=== PATIENT | female | born 1955 | race Caucasian/White ===

== ENCOUNTER → 2017-09-21 | Outpatient (CLI) | payer MEDICARE ==
--- NOTE | 2017-09-21 16:31 | WOMENS IMAGING REPORT ---
EXAM DESCRIPTION: BILAT SCREENING MAMMO W/CAD COMPLETED DATE/TIME: 09/21/2017 2:24 pm REASON FOR STUDY: ROUTINE SCREENING;Z12.31 Z12.31 ENCNTR SCREEN MAMMOGRAM FOR MALIGNANT NEOPLASM OF SERVANDO COMPARISON: Multiple since 2012 TECHNIQUE: Standard craniocaudal and mediolateral oblique views of each breast recorded using [employer] acquisition. LIMITATIONS: None. FINDINGS: No masses, calcifications or architectural distortion. No areas of suspicion. Read with the assistance of CAD. .[facility] - R2 Cenova Version 1.3 .[facility] - R2 Cenova Version 1.3 .[facility] - R2 Cenova Version 2.4 .[facility] - R2 Cenova Version 2.4 .[facility] - R2 [employer] Version 9.2 IMPRESSION: NORMAL MAMMOGRAM. BIRADS 1. BREAST DENSITY: b. There are scattered areas of fibroglandular density. BIRAD: 1 NEGATIVE RECOMMENDATION: ROUTINE SCREENING Please continue yearly bilateral screening mammography/tomosynthesis in August 2018 COMMENT: The patient has been notified of the results by letter per SA requirements. Additional no tification policies are in place for contacting patient with suspicious or incomplete findings. Quality ID #[id number]: The [employer] recommends an annual screening mammogram for women aged 40 years or over. This facility utilizes a reminder system to ensure that all patients receive reminder letters, and/or direct phone calls for appointments. This includes reminders for routine scr eening mammograms, diagnostic mammograms, or other Breast Imaging Interventions when appropriate. Th is patient will be placed in the appropriate reminder system. The [employer] (ACR) has developed recommendations for screening MRI of the breast s in certain patient populations, to be used in conjunction with mammography. Breast MRI surveillanc e may be appropriate for women with more than 20% lifetime risk of developing breast cancer as deter mined by genetic testing, significant family history of the disease, or history of mantle radiation f or Hodgkins Disease. ACR Practice Guidelines 2008. TECHNICAL DOCUMENTATION: FINDING NUMBER: (1) ASSESSMENT: (1) JOB ID: [id number] [employer]- All Rights Reserved Reading location - IP/workstation name: [email or web address]
== END ==
LOC: WI 13:53
PROVIDERS: ATTEND Physician Assistant
DX: Z12.31 Encounter for screening mammogram for malignant neoplasm of breast (principal)
CPT/HCPCS: 77067

== ENCOUNTER 2018-06-05 20:41 | Emergency (ER) | payer MEDICARE ==
[2018-06-05] MEDS ORDERED: ONDANSETRON HCL INJ/PF 4 MG/2 ML SDV IV ONE (21:01)
[2018-06-05 21:30] LABS: ABSOLUTE LYMPHOCYTES (AUTO) 0.9 10^3/uL (0.5-4.7); ABSOLUTE MONOCYTES (AUTO) 0.1 10^3/uL (0.1-1.4); ABSOLUTE NEUT (AUTO) 7.4 10^3/uL (1.7-8.2); BASOPHILS % (AUTO) 0.4 % (0-2); HEMATOCRIT 44.8 % (36.0-47.0); HEMOGLOBIN 15.7 g/dL (12.0-15.5); LYMPHOCYTES % (AUTO) 11.1 % (13-45); MEAN CORPUSCULAR HEMOGLOBIN 29.7 pg (27.0-33.4); MEAN CORPUSCULAR HGB CONC 35.1 g/dL (32.0-36.0); MEAN CORPUSCULAR VOLUME 85 fl (80-97); MONOCYTES % (AUTO) 1.1 % (3-13); PLATELET COUNT 247 10^3/uL (150-450); RED BLOOD COUNT 5.28 10^6/uL (3.72-5.28); RED CELL DISTRIBUTION WIDTH 13.6 % (11.5-14.0); SEGMENTED NEUTROPHILS % (AUTO) 87.4 % (42-78); TOTAL CELLS COUNTED % (AUTO) 100 %; WHITE BLOOD COUNT 8.5 10^3/uL (4.0-10.5)
[2018-06-05] MEDS ORDERED: HYDROMORPHONE HCL INJ/PF 2 MG/ML AMPULE IV ONE (21:36)
[2018-06-05] MEDS ORDERED: METOCLOPRAMIDE HCL INJ/PF 10 MG/2 ML SDV IV ONE (21:36)
[2018-06-05 21:48] LABS: ALANINE AMINOTRANSFERASE 24 U/L (9-52); ALBUMIN 4.7 g/dL (3.5-5.0); ALKALINE PHOSPHATASE 96 U/L (38-126); ANION GAP 17 (5-19); ASPARTATE AMINO TRANSFERASE 28 U/L (14-36); BILIRUBIN,DIRECT 0.3 mg/dL (0.0-0.4); BILIRUBIN,TOTAL 0.7 mg/dL (0.2-1.3); BLOOD UREA NITROGEN 21 mg/dL (7-20); CARBON DIOXIDE 20 mmol/L (22-30); CHLORIDE 104 mmol/L (98-107); CREATINE KINASE 42 U/L (30-135); GLUCOSE 191 mg/dL (75-110); POTASSIUM 4.2 mmol/L (3.6-5.0); SODIUM 140.8 mmol/L (137-145); TOTAL PROTEIN 7.3 g/dL (6.3-8.2)
[2018-06-05 22:00] LABS: CREATINE KINASE MB 0.24 ng/mL (<4.55)
[2018-06-05 22:01] LABS: TROPONIN I < 0.012 ng/mL
[2018-06-05 22:05] LABS: APPEARANCE,URINE CLOUDY; BILIRUBIN,URINE NEGATIVE (NEGATIVE); COLOR,URINE YELLOW; GLUCOSE, URINE 50 mg/dL (NEGATIVE); KETONES,URINE 20 mg/dL (NEGATIVE); LEUKOCYTE ESTERASE,URINE SMALL (NEGATIVE); NITRITE,URINE NEGATIVE (NEGATIVE); PROTEIN,URINE 100 mg/dL (NEGATIVE); URINE SPECIFIC GRAVITY 1.015; UROBILINOGEN,URINE NEGATIVE mg/dL (<2.0)
[2018-06-05] MEDS ORDERED: RINGERS SOLUTION,LACTATED 1,000 ML IV ONE (22:16)
[2018-06-05] MEDS ORDERED: NORMAL SALINE 1000 ML 1,000 ML IV ONE (22:17)
--- NOTE | 2018-06-05 23:58 | ER Document Report ---
ED General - General TRAVEL OUTSIDE OF THE [place] IN LAST 30 DAYS: No <SHYANN KATZ - Last Filed: 06/06/18 07:05> <DIANAJOSI - Last Filed: 06/06/18 14:34> - General Chief Complaint: Nausea/Vomiting Stated Complaint: VOMMITING Time Seen by Provider: 06/05/18 21:27 Primary Care Provider: PINA HERNANDEZ FNP-C [Primary Care Provider] - Follow up as needed Notes: Patient is 62-year-old female presents to the emergency department for genera lized nausea, vomiting, left lower abdominal pain. Patient states she just left [facility] after kidney stent placement for kidney stones. States Dr. Lito Alicia was the provider that did the procedure. States they were on the way home from [facility] when the patient had excruciating pain in her left flank and then started violently vomiting. Patient states at that time she feels as though the stent "came out of my vagina." Patient states she has continued with vomiting and dry heaving and excruciating pain in her left flank which is why she presents to the emergency room. states they attempted to call the doctor at [facility] but were unable to reach them. (SHYANN KATZ) - Related Data Allergies/Adverse Reactions: latex [Latex] Allergy (Verified 07/04/13 17:36) codeine [Codeine] Adverse Reaction (Verified 07/04/13 17:36) itching Past Medical History - General Information source: Patient, Relative - Social History Smoking Status: Unknown if Ever Smoked Family History: Reviewed & Not Pertinent Patient has suicidal ideation: No Patient has homicidal ideation: No - Past Medical History Cardiac Medical History: Reports: Hx Hypercholesterolemia, Hx Hypertension Renal/ Medical History: Denies: Hx Peritoneal Dialysis Past Surgical History: Reports: Hx Hysterectomy, Hx Orthopedic Surgery - Immunizations Hx Diphtheria, Pertussis, Tetanus Vaccination: No <SHYANN KATZ - Last Filed: 06/06/18 07:05> Review of Systems - Review of Systems Constitutional: denies: Fever EENT: No symptoms reported Cardiovascular: No symptoms reported Respiratory: No symptoms reported Gastrointestinal: See HPI Genitourinary: See HPI Female Genitourinary: See HPI Musculoskeletal: See HPI Skin: No symptoms reported Hematologic/Lymphatic: No symptoms reported Neurological/Psychological: No symptoms reported <SHYANN KATZ - Last Filed: 06/06/18 07:05> Physical Exam <SHYANN KATZ - Last Filed: 06/06/18 07:05> - Vital signs Vitals: Pulse Resp BP Pulse Ox 103 H 18 163/71 H 96 06/05/18 20:51 06/05/18 20:51 06/05/18 20:51 06/05/18 20:51 - Notes Notes: GENERAL: Alert, diaphoretic, actively vomiting. HEAD: Normocephalic, atraumatic. EYES: Pupils equal, round, and reactive to light. Extraocular movements intact. ENT: Oral mucosa moist, tongue midline. NECK: Full range of motion. Supple. Trachea midline. LUNGS: Clear to auscultation bilaterally, no wheezes, rales, or rhonchi. No respiratory distress. HEART: Regular rate and rhythm. No murmur ABDOMEN: Soft, Non-distended. Bowel sounds present in all 4 quadrants. Generalized left flank pain. No McBurney's point tenderness, no Siegel sign. EXTREMITIES: Moves all 4 extremities spontaneously. No edema, normal radial and dorsalis pedis pulses bilaterally. No cyanosis. BACK: no cervical, thoracic, lumbar midline tenderness. No saddle anesthesia, normal distal neurovascular exam. NEUROLOGICAL: Alert and oriented x3. Normal speech. cranial nerves II through XII grossly intact PSYCH: Normal affect, normal mood. SKIN: Warm, dry, normal turgor. No rashes or lesions noted. (CHENGDENA BRUNNERSALLY) Course - Laboratory Result Diagrams: 06/05/18 21:20 06/05/18 21:20 <SHYANN KATZ - Last Filed: 06/06/18 07:05> - Laboratory Result Diagrams: 06/05/18 21:20 06/05/18 21:20 <RADHA ORTIZ - Last Filed: 06/06/18 14:34> - Re-evaluation Re-evalutation: Patient's labs show no signs of leukocytosis, her urine is not infected although patient is Loi been on antibiotics per Lito Alicia. Discussed patient's case with urology Dr. Lito Alicia at [id number]. He states to give the patient 2 L of fluid rehydration, treat her pain, nausea, vomiting and to discharge her home. States she can follow-up with him tomorrow. After pain medication in the emergency department patient states she overall feels a whole lot better. She has no further episodes of vomiting after Reglan administration. Discussed close follow-up with her urologist and return precautions. Patient voices understanding stable for discharge. (SHYANN KATZ) - Vital Signs Vital signs: Temp Pulse Resp BP Pulse Ox 97.7 F 103 H 13 122/67 93 06/06/18 01:01 06/05/18 20:51 06/06/18 01:01 06/06/18 01:01 06/06/18 01:01 - Laboratory Laboratory results interpreted by me: 06/05/18 06/05/18 06/05/18 21:20 21:20 21:50 Hgb 15.7 H Seg Neutrophils % 87.4 H Lymphocytes % 11.1 L Monocytes % 1.1 L Carbon Dioxide 20 L BUN 21 H Est GFR (Non-Af Amer) 55 L Glucose 191 H Urine Protein 100 H Urine Glucose (UA) 50 H Urine Ketones 20 H Urine Blood LARGE H Ur Leukocyte Esterase SMALL H Discharge <SHYANN KATZ - Last Filed: 06/06/18 07:05> <RADHA ORTIZ - Last Filed: 06/06/18 14:34> - Discharge Clinical Impression: Nausea & vomiting, Flank pain Condition: Stable Disposition: HOME, SELF-CARE Instructions: Abdominal Pain ([facility]), Antinausea Medication ([facility]), Intravenous (IV) Fluids ([facility]), Vomiting ([facility]) Additional Instructions: As we discussed I have spoken with your urologist Dr. Lito Alicia. He has recommended follow-up with him tomorrow. Please give his office a call in the morning. Please take medications as prescribed and continue to stay well- hydrated. Should he have any other concerning symptoms return to the emergency room. Prescriptions: Ketorolac Tromethamine [Toradol 10 mg Tablet] 10 mg PO Q8HP PRN #24 tablet PRN Reason: Ondansetron [Zofran Odt 4 mg Tablet] 1 - 2 tab PO Q4H PRN #15 tab.rapdis PRN Reason: For Nausea/Vomiting Referrals: PINA HERNANDEZ, MAIL MESSENGER CONTRACTOR-C [Primary Care Provider] - Follow up as needed
[2018-06-06 01:07] VITALS: BP 122/67
--- NOTE | 2018-06-06 12:33 | EKG REPORT ---
SEVERITY:- ABNORMAL ECG - SINUS RHYTHM VENTRICULAR PREMATURE COMPLEX PROBABLE LEFT ATRIAL ABNORMALITY BORDERLINE LEFT AXIS DEVIATION NONSPECIFIC T ABNORMALITIES, LATERAL LEADS : Confirmed by: Trupti Dyson MD 06-Jun-2018 12:33:03
== END 2018-06-06 01:16 | disposition home or self-care (01) ==
LOC: ER 20:41
DX: R11.2 Nausea with vomiting, unspecified (principal); R10.9 Unspecified abdominal pain; I10 Essential (primary) hypertension; Z96.0 Presence of urogenital implants; Z91.040 Latex allergy status
CPT/HCPCS: 93005; 99284; 96361; 96374; 96375; 36415; 82553; 82550; 85025; 80053; 81001; 84484; 93010; J2765; J1170; J2405; J7030; J7120

== ENCOUNTER → 2019-02-12 | Outpatient (CLI) | payer MEDICARE ==
--- NOTE | 2019-02-12 13:59 | WOMENS IMAGING REPORT ---
EXAM DESCRIPTION: 3D SCREENING MAMMO BILAT COMPLETED DATE/TIME: 02/12/2019 1:29 pm REASON FOR STUDY: Z12.31 SCREENING MAMMO Z12.31 ENCNTR SCREEN MAMMOGRAM FOR MALIGNANT NEOPLASM OF B RE COMPARISON: Multiple since 2012 EXAM PARAMETERS: Views: Standard craniocaudal and mediolateral oblique views of each breast recorded using digital acquisition and breast tomosynthesis. Read with the assistance of CAD. .[facility] - [employer] Analyst Version 9.2 LIMITATIONS: None. FINDINGS: No suspicious masses, suspicious calcifications or architectural distortion. No areas of c oncern. IMPRESSION: NEGATIVE MAMMOGRAM. BIRADS 1. BREAST DENSITY: a. The breasts are almost entirely fatty. BIRAD: ASSESSMENT: 1 NEGATIVE RECOMMENDATION: ROUTINE SCREENING Please continue yearly bilateral screening mammography/tomosynthesis in February 2020 COMMENT: The patient has been notified of the results by letter per SA requirements. Additional no tification policies are in place for contacting patient with suspicious or incomplete findings. Quality ID #[id number]: The [employer] recommends an annual screening mammogram for women aged 40 years or over. This facility utilizes a reminder system to ensure that all patients receive reminder letters, and/or direct phone calls for appointments. This includes reminders for routine scr eening mammograms, diagnostic mammograms, or other Breast Imaging Interventions when appropriate. Th is patient will be placed in the appropriate reminder system. TECHNICAL DOCUMENTATION: FINDING NUMBER: (1) ASSESSMENT: (1) JOB ID: [id number] [employer]- All Rights Reserved Reading location - IP/workstation name: [email or web address]
== END ==
LOC: WI 13:15
PROVIDERS: ATTEND Physician Assistant
DX: Z12.31 Encounter for screening mammogram for malignant neoplasm of breast (principal)
CPT/HCPCS: 77063; 77067

== ENCOUNTER → 2020-03-09 | Outpatient (CLI) | payer MEDICARE ==
--- NOTE | 2020-03-09 13:49 | WOMENS IMAGING REPORT ---
EXAM DESCRIPTION: 3D SCREENING MAMMO BILAT IMAGES COMPLETED DATE/TIME: 03/09/2020 1:33 pm REASON FOR STUDY: Z12.31 ENCOUNTER FOR SCREENING MAMMOGRAM FOR MALIGNANT NEOPLASM OF BREAST Z12.31 ENCNTR SCREEN MAMMOGRAM FOR MALIGNANT NEOPLASM OF SERVANDO COMPARISON: 02/12/2019 and 09/21/2017. EXAM PARAMETERS: Views: Standard craniocaudal and mediolateral oblique views of each breast recorded using digital acquisition and breast tomosynthesis. Read with the assistance of CAD. .[facility] - R2 [employer] Version 9.2 LIMITATIONS: None. FINDINGS: No suspicious masses, suspicious calcifications or architectural distortion. No areas of c oncern. IMPRESSION: NEGATIVE MAMMOGRAM. BIRADS 1. BREAST DENSITY: a. The breasts are almost entirely fatty. BIRAD: ASSESSMENT: 1 NEGATIVE RECOMMENDATION: ROUTINE SCREENING COMMENT: The patient has been notified of the results by letter per MQSA requirements. Additional no tification policies are in place for contacting patient with suspicious or incomplete findings. Quality ID #[id number]: The [employer] recommends an annual screening mammogram for women aged 40 years or over. This facility utilizes a reminder system to ensure that all patients receive reminder letters, and/or direct phone calls for appointments. This includes reminders for routine scr eening mammograms, diagnostic mammograms, or other Breast Imaging Interventions when appropriate. Th is patient will be placed in the appropriate reminder system. TECHNICAL DOCUMENTATION: FINDING NUMBER: (1) ASSESSMENT: (1) JOB ID: [id number] [employer]- All Rights Reserved Reading location - IP/workstation name: [email or web address]
== END ==
LOC: WI 13:07
PROVIDERS: ATTEND Physician Assistant
DX: Z12.31 Encounter for screening mammogram for malignant neoplasm of breast (principal)
CPT/HCPCS: 77063; 77067